=== PATIENT | male | born 1985 | race Caucasian/White ===

== ENCOUNTER 2021-02-15 10:00 | Emergency (ER) | payer SELFPAY ==
[~2021-02-15 10:00] MED LIST: HYDR1TAB PO
[2021-02-15] MEDS ORDERED: LIDOCAINE 1% INJ 20 ML 20 ML VIAL INJ STA (10:23)
--- NOTE | 2021-02-15 10:29 | ED Integumentary General ---
General Chief Complaint: Skin/Wound Problems Stated Complaint: RT KNEE SPIDER BITE Nursing Triage Note: Pt c/o spider bite to R knee. Pt reports first noticing symptoms on . Pt was seen at urgent care on Monday and prescribed Bactrim. Pt reports symptoms have worsened. Area of concern to R knee, erythema to area. Source: patient History of Present Illness Date Seen by Provider: Feb 15, 2021 Time Seen by Provider: 10:02 Initial Comments 36-year-old male presenting with infection swelling to the right knee. He states this has been since last . He did go to urgent care on Monday and was prescribed Bactrim. However today he felt like it was more painful and was feeling that it needed to be drained. He does have a history of MRSA. He had a subjective fever last night and his girlfriend tried to get him to come to the emergency department then but he had already taken his Seroquel for the night and so he stayed in bed. Today he was still having a lot of pain when he tried to go to work at [employer] so he came here to be checked out. Timing/Duration: getting worse (since February 11) Severity: moderate Location: extremities (right knee cap) Possible Cause: other (unsure, thinks it was "spider bite") Modifying Factors: worse with scratching Associated Symptoms: change in skin texture, edema; No fever, No flushing, No headache, No hives, No jaundice, No malaise, No nasal congestion, No numbness, No pallor, No paresthesia, No petechiae, No rash, No sore throat, No swelling/mass/lumps, No tingling Allergies and Home Medications Allergies Coded Allergies: No Known Drug Allergies (Unverified , 01/18/12) Home Medications Hydrocodone/Acetaminophen 1 Each Tablet, 1 TAB PO Q4H PRN for PAIN-SEVERE (8-10) Prescribed by: LEOBARDO BARBOZA on 02/15/21 1134 Patient Home Medication List Home Medication List Reviewed: Yes Review of Systems Review of Systems Constitutional: No chills; fever (subjective) EENTM: no symptoms reported Respiratory: no symptoms reported Cardiovascular: no symptoms reported Gastrointestinal: no symptoms reported Genitourinary: no symptoms reported Musculoskeletal: see HPI, other (pain to right leg/knee around the abscess/cellulitis area) Skin: see HPI, change in color (redness and swelling with occasional purulent drainage to right anterior knee over the knee cap) Psychiatric/Neurological: Denies Numbness, Denies Paresthesia Endocrine: No Symptoms Reported Hematologic/Lymphatic: No Symptoms Reported Past Nmhvcbm-Gawbpk-Tqfjjy Hx Past Med/Social Hx: Reviewed Nursing Past Med/Soc Hx Patient Social History Alcohol Use: Denies Use Smoking Status: Current Everyday Smoker Type Used: Cigarettes 2nd Hand Smoke Exposure: Yes Recent Infectious Disease Expo: No Recent Hopitalizations: No Past Medical History Surgeries: Yes (lymph node removal R armpit) Respiratory: No Cardiac: No Neurological: No Genitourinary: No Gastrointestinal: No Musculoskeletal: No HEENT: No Cancer: No Psychosocial: Yes Bipolar, Depression Physical Exam Vital Signs Vital Signs - First Documented 02/15/21 10:10 Temp 36.7 Pulse 87 Resp 20 B/P (MAP) 126/67 (86) Pulse Ox 97 O2 Delivery Room Air Capillary Refill : Less Than 3 Seconds General Appearance: WD/WN, mild distress Cardiovascular: normal peripheral pulses Extremities: normal range of motion, normal capillary refill, inflammation (tender to anterior right knee where he has erythema and swelling for abscess/cellulitis) 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 Then using 1% plain lidocaine the area was anesthetized. There was removal of 1 mL of 1% plain lidocaine infiltrated into the skin. Then using an 11 blade scalpel an incision was made around the area where he was already having some drainage. There was some purulent drainage and bloody drainage that came out. The area was swabbed to obtain some purulent drainage for culture. Then while applying pressure on attempted to express more of the purulent d rainage. There is a small to moderate amount of purulent drainage and bloody drainage from the abscess. Patient tolerated procedure well without any immediate complication. Sterile dressing applied. We will give a few hydrocodone to help with pain. Counseled on warm packs and continue antibioti cs. Counseled follow-up and return precautions. Progress/Results/Core Measures Results/Orders My Orders Orders - LEOBARDO BARBOZA MD Lidocaine 1% Inj 20 Ml (Xylocaine 1% Inj (02/15/21 10:23) Wound Culture (02/15/21 10:23) Hydrocodone/Apap 5/325 Tablet (Lortab 5 (02/15/21 11:28) Wound Dressing-Ed (02/15/21 11:28) Vital Signs/I&O 02/15/21 02/15/21 10:10 11:40 Temp 36.7 36.7 Pulse 87 87 Resp 20 20 B/P (MAP) 126/67 (86) 126/67 (86) Pulse Ox 97 97 O2 Delivery Room Air Room Air Blood Pressure Mean: 86 Progress Progress Note : Progress Note There is a small to moderate amount of purulent drainage and bloody drainage from the abscess. Patient tolerated procedure well without any immediate complication. Sterile dressing applied. We will give a few hydrocodone to help with pain. Counseled on warm packs and continue antibiotics. Counseled follow- up and return precautions. Departure Impression Primary Impression: Cutaneous abscess of right knee Additional Impression: History of MRSA infection Disposition: HOME, SELF-CARE Condition: Stable Departure-Patient Inst. Decision time for Depature: 11:32 Referrals: LIZ GARCIA MD (PCP/Family) Primary Care Physician Patient Instructions: Abscess Incision and Drainage ED, Methicillin-Resistant Staphylococcus aureus (MRSA) Add. Discharge Instructions: Keep wound clean and use soap and water on it. Keep it covered with clean dressing and may use antibiotic ointment to help keep it from getting further infected. When you are home or able to do so, apply a warm pack such as a wash cloth that you get as hot as you can stand it with water from the sink then apply it to the area for 5-10 minutes. You could do this every hour or two and it will help the area come to a head and drain if there is more pus to drain out. Continue on the Ibuprofen for pain and inflammation. For today you could use the Hydrocodone for severe pain and to help you rest. Check back with clinic or return if you have worsening infection, see red streaks running up your leg, fever over 101 F All discharge instructions reviewed with patient and/or family. Voiced understanding. Scripts Hydrocodone/Acetaminophen (Hydrocodone-Acetamin 5-325 mg) 1 Each Tablet 1 TAB PO Q4H PRN for PAIN-SEVERE (8-10) for 1 Day, #5 TAB 0 Refills Prov: LEOBARDO BARBOZA MD 02/15/21 Work/School Note: Work Release Form Date Seen in the Emergency Department: Feb 15, 2021 Return to Work: Feb 16, 2021 Restrictions: No Restrictions Images Extremities-Lower 1 - Cellulitis (Abscess with surrounding erythema and cellulitis to the right anterior knee), Edema, Swelling, Tenderness LEOBARDO BARBOZA MD Feb 15, 2021 10:29
[2021-02-15] MEDS ORDERED: HYDROcodone/APAP 5 MG/325 MG (LORTAB) TAB PO STA (11:28)
[2021-02-15] MEDS ORDERED: ACHD5005 PO (11:33)
[2021-02-15 11:40] VITALS: BP 126/67
== END 2021-02-15 11:40 | disposition home or self-care (01) ==
LOC: EDUNIT# 10:00 → ER FS 10:02
DX: L02.415 Cutaneous abscess of right lower limb (principal); F17.210 Nicotine dependence, cigarettes, uncomplicated; Z86.14 Personal history of Methicillin resistant Staphylococcus aureus infection
CPT/HCPCS: 87070; 87077; 87186; 87205; 99283

== ENCOUNTER 2021-03-29 13:02 | Emergency (ER) | payer BC, OTHER ==
[~2021-03-29] VITALS: Ht 175.2 cm; Wt 60.5 kg
[~2021-03-29 13:02] MED LIST changes: +ACHD5005 PO
[2021-03-29 13:06] VITALS: BP 133/67
--- NOTE | 2021-03-29 13:30 | ED General ---
General Chief Complaint: Skin/Wound Problems Stated Complaint: INSECT BITE Source of Information: Patient Exam Limitations: No Limitations History of Present Illness Date Seen by Provider: Mar 29, 2021 Time Seen by Provider: 13:00 Initial Comments Patient is a 36 year old male with h/o MRSA who presents with deroofed abscess of the R extensor forearm. Patient states abscess in the region of a possible insect bite. No fever, chills, nausea, vomiting and sweats. Timing/Duration: 1 Hour, 1-3 Hours, 4-5 Days Severity: Mild Associated Systoms: Other Allergies and Home Medications Allergies Coded Allergies: No Known Drug Allergies (Unverified , 01/18/12) Home Medications Hydrocodone/Acetaminophen 1 Each Tablet, 1 TAB PO Q4H PRN for PAIN-SEVERE (8-10) Prescribed by: LEOBARDO BARBOZA on 02/15/21 1134 Patient Home Medication List Home Medication List Reviewed: Yes Review of Systems Review of Systems Constitutional: see HPI EENTM: see HPI Respiratory: see HPI Gastrointestinal: see HPI Genitourinary: see HPI Musculoskeletal: no symptoms reported Skin: see HPI Psychiatric/Neurological: See HPI Hematologic/Lymphatic: See HPI Past Norehwk-Fhzqlt-Vkryub Hx Patient Social History Tobacco Use?: Yes Tobacco type used: Cigarettes Smoking Status: Current Everyday Smoker Substance use?: No Additional substance use comme: reports past hx before being in snf Alcohol Use?: Yes Alcohol Frequency: Couple times a week Pt feels they are or have been: No Past Medical History Surgeries: Yes (lymph node removal R armpit) Respiratory: No Cardiac: No Neurological: No Genitourinary: No Gastrointestinal: No Musculoskeletal: No HEENT: No Cancer: No Psychosocial: Yes Bipolar, Depression Physical Exam Vital Signs Capillary Refill : Height, Weight, BMI Height: '" Weight: lbs. oz. kg; BMI Method:Stated General Appearance: No Apparent Distress, WD/WN, Anxious Extremity: Other ( 1 cm deep deroofed abscess of right extensor forearm mid forearm. No surrounding cellulitis. Minimal clear drainage.) Neurologic/Psychiatric: Alert, Oriented x3 Focused Exam Sepsis Stage: Ruled Out Progress/Results/Core Measures Suspected Sepsis SIRS Temperature: Pulse: Respiratory Rate: Blood Pressure / Mean: Results/Orders Vital Signs/I&O Capillary Refill : Departure Communication (Admissions) Recommend watchful waiting and therapeutic care with PCP follow-up as needed. Return precautions reviewed. Impression Primary Impression: Abscess of right arm Disposition: HOME, SELF-CARE Condition: Stable Departure-Patient Inst. Decision time for Depature: 13:30 Referrals: LIZ GARCIA MD (PCP/Family) Primary Care Physician Patient Instructions: Skin Abscess Add. Discharge Instructions: Please take oral antibiotics and apply topical antibiotics as directed. Follow up with your PCP for re-evaluation. All discharge instructions reviewed with patient and/or family. Voiced understanding. Scripts Mupirocin (Mupirocin) 22 Gm Oint...g. 22 GM TP Q8H, #20 TUBE Prov: CRAIG CALLAHAN DO 03/29/21 Sulfamethoxazole/Trimethoprim (Bactrim Ds Tablet) 1 Each Tablet 1 EACH PO BID, #28 TAB Prov: CRAIG CALLAHAN DO 03/29/21 CRAIG CALLAHAN DO Mar 29, 2021 13:30
[2021-03-29] MEDS ORDERED: SULF1TAB38 PO (13:31)
[2021-03-29] MEDS ORDERED: MUPI22OI2 TP (13:31)
[2021-03-29] MEDS ORDERED: Seroquel (13:41)
== END 2021-03-29 13:34 | disposition home or self-care (01) ==
LOC: EDUNIT# 13:02 → ER FS 13:04
DX: L02.413 Cutaneous abscess of right upper limb (principal); F17.210 Nicotine dependence, cigarettes, uncomplicated
CPT/HCPCS: 99282

== ENCOUNTER 2021-07-26 02:40 | Emergency (ER) | payer SELFPAY ==
[~2021-07-26] VITALS: Ht 170.1 cm; Wt 61.2 kg
[~2021-07-26 02:40] MED LIST changes: +MUPI22OI2 TP; +SULF1TAB38 PO; +Seroquel
[2021-07-26] MEDS ORDERED: IOHEXOL 350 MG/ML 100 ML (OMNIPAQUE 350) VIAL IV ONE (03:00)
[2021-07-26] MEDS ORDERED: NS 100 ML (IVPB) BAG IV ONE (03:00)
[2021-07-26] MEDS ORDERED: ONDANSETRON 4 MG/2 ML (SDV) Z0FRAN IVP ONE (03:00)
[2021-07-26] MEDS ORDERED: morphine INJ 10 MG/ML 1ML (SYR OR VIAL) IVP ONE (03:00)
[2021-07-26] MEDS ORDERED: HOLD METFORMIN - RECEIVED CONTRAST 20 ML VIAL IV SCH (03:00)
--- NOTE | 2021-07-26 03:05 | ED Abdominal Pain ---
General Chief Complaint: Abdominal/GI Problems Stated Complaint: LOWER ABDOMINAL PAIN Nursing Triage Note: Patient states that he started having right lower quadrant abdominal pain approximately 20 minutes [employer]. Patient states this pain woke him up out of sleep and radiates to his testicles. Patients last reported bowel movement was yesterday and was normal. Source of Information: Patient Exam Limitations: No Limitations History of Present Illness Date Seen by Provider: Jul 26, 2021 Time Seen by Provider: 02:46 Initial Comments 36yoM with no significant PMH coming in due to RLQ abd pain that started about 30 minutes prior to arrival. The pain is severe, sharp/crampy, constant, and he has never had this pain before. Nothing seems to make it better. Feels somewhat like he needs to have a bowel movement but had a normal one yesterday. Denies any abdominal surgeries. Denies h/o kidney stones, hematuria, dysuria. Pain does radiate to his testicle. Allergies and Home Medications Allergies Coded Allergies: No Known Drug Allergies (Unverified , 01/18/12) Patient Home Medication List Home Medication List Reviewed: Yes Hydrocodone Bit/Acetaminophen (HYDROcodone/APAP 5 MG/325 MG TAB) 1 Tab Tab, 1 TAB PO Q6H PRN for PAIN-SEVERE (8-10) Prescribed by: NAE BUTLER on 07/26/21 0442 Hydrocodone/Acetaminophen (Hydrocodone-Acetamin 5-325 mg) 1 Each Tablet, 1 TAB PO Q4H PRN for PAIN-SEVERE (8-10) Prescribed by: LEOBARDO BARBOZA on 02/15/21 1134 Ketorolac Tromethamine (Ketorolac Tromethamine) 10 Mg Tablet, 10 MG PO Q8H PRN for PAIN-MODERATE (5-7) Prescribed by: NAE BUTLER on 07/26/21 0442 Mupirocin (Mupirocin) 22 Gm Oint...g., 22 GM TP Q8H Prescribed by: CRAIG CALLAHAN on 03/29/21 1331 Ondansetron (Ondansetron Odt) 4 Mg Tab.rapdis, 4 MG PO Q6H PRN for NAUSEA/VOMITING-1ST LINE Prescribed by: NAE BUTLER on 07/26/21 0442 Sulfamethoxazole/Trimethoprim (Bactrim Ds Tablet) 1 Each Tablet, 1 EACH PO BID Prescribed by: CRAIG CALLAHAN on 03/29/21 1331 Tamsulosin HCl (Flomax) 0.4 Mg Cap, 0.4 MG PO DAILY Prescribed by: NAE BUTLER on 07/26/21 0442 [Seroquel] , (Reported) Entered as Reported by: DARRELL DYE on 03/29/21 1341 Review of Systems Review of Systems Constitutional: No chills, No fever EENTM: No Blurred Vision Respiratory: Denies Cough, Denies Shortness of Air Cardiovascular: Denies Chest Pain Gastrointestinal: Abdominal Pain; Denies Diarrhea, Denies Nausea, Denies Vomiting Genitourinary: No Symptoms Reported Musculoskeletal: no symptoms reported Skin: no symptoms reported Psychiatric/Neurological: No Symptoms Reported Endocrine: No Symptoms Reported Hematologic/Lymphatic: No Symptoms Reported All Other Systems Reviewed Negative Unless Noted: Yes Past Wotlknr-Jdaihq-Hmwamn Hx Patient Social History Tobacco Use?: Yes Tobacco type used: Cigarettes Smoking Status: Current Everyday Smoker Substance use?: No Alcohol Use?: No Past Medical History Surgeries: Yes (lymph node removal R armpit) Respiratory: No Cardiac: No Neurological: No Genitourinary: No Gastrointestinal: No Musculoskeletal: No HEENT: No Cancer: No Psychosocial: Yes Bipolar, Depression Physical Exam Vital Signs Vital Signs - First Documented 07/26/21 02:45 Temp 37.0 Pulse 46 Resp 16 B/P (MAP) 151/92 (111) Pulse Ox 97 O2 Delivery Room Air Capillary Refill : Less Than 3 Seconds Height/Weight/BMI Height: '" Weight: lbs. oz. kg; 21.00 BMI Method:Stated General Appearance: WD/WN, no apparent distress HEENT: PERRL/EOMI, normal ENT inspection, pharynx normal Neck: non-tender, full range of motion, supple, normal inspection Respiratory: chest non-tender, lungs clear, normal breath sounds, no respiratory distress, no accessory muscle use Cardiovascular: regular rate, rhythm, no edema, no murmur Gastrointestinal: normal bowel sounds, soft; No distended, No guarding, No rebound; tenderness Genital/Rectal: normal genital exam, other (normal appearing testicle without s welling or tenderness) Extremities: normal range of motion, non-tender, normal inspection, no pedal edema, no calf tenderness, normal capillary refill Back: normal inspection, no CVA tenderness, no vertebral tenderness Male: no hernia Neurologic/Psychiatric: no motor/sensory deficits, alert, normal mood/affect Skin: normal color, warm/dry Lymphatic: no adenopathy Progress/Results/Core Measures Results/Orders Lab Results Laboratory Tests Test 07/26/21 02:52 07/26/21 03:53 Range/Units White Blood Count 9.9 4.3-11.0 10^3/uL Red Blood Count 5.09 4.30-5.52 10^6/uL Hemoglobin 14.5 13.3-17.7 g/dL Hematocrit 42 40-54 % Mean Corpuscular Volume 83 80-99 fL Mean Corpuscular Hemoglobin 28 25-34 pg Mean Corpuscular Hemoglobin Concent 35 32-36 g/dL Red Cell Distribution Width 12.5 10.0-14.5 % Platelet Count 334 130-400 10^3/uL Mean Platelet Volume 9.0 9.0-12.2 fL Neutrophils (%) (Auto) 57 42-75 % Lymphocytes (%) (Auto) 28 12-44 % Monocytes (%) (Auto) 10 0-12 % Eosinophils (%) (Auto) 5 0-10 % Basophils (%) (Auto) 1 0-10 % Neutrophils # (Auto) 5.6 1.8-7.8 X 10^3 Lymphocytes # (Auto) 2.8 1.0-4.0 X 10^3 Monocytes # (Auto) 1.0 0.0-1.0 X 10^3 Eosinophils # (Auto) 0.5 H 0.0-0.3 10^3/uL Basophils # (Auto) 0.1 0.0-0.1 10^3/uL Sodium Level 137 135-145 MMOL/L Potassium Level 3.5 L 3.6-5.0 MMOL/L Chloride Level 100 98-107 MMOL/L Carbon Dioxide Level 25 21-32 MMOL/L Anion Gap 12 5-14 MMOL/L Blood Urea Nitrogen 21 H 7-18 MG/DL Creatinine 1.25 0.60-1.30 MG/DL Estimat Glomerular Filtration Rate 65 BUN/Creatinine Ratio 17 Glucose Level 116 H 70-105 MG/DL Calcium Level 9.9 8.5-10.1 MG/DL Corrected Calcium 9.6 8.5-10.1 MG/DL Total Bilirubin 0.3 0.1-1.0 MG/DL Aspartate Amino Transf (AST/SGOT) 27 5-34 U/L Alanine Aminotransferase (ALT/SGPT) 23 0-55 U/L Alkaline Phosphatase 99 40-136 U/L Total Protein 7.3 6.4-8.2 GM/DL Albumin 4.4 3.2-4.5 GM/DL Lipase 64 8-78 U/L Urine Color YELLOW Urine Clarity CLEAR Urine pH 8.0 5-9 Urine Specific Pierz 1.010 L 1.016-1.022 Urine Protein NEGATIVE NEGATIVE Urine Glucose (UA) NEGATIVE NEGATIVE Urine Ketones NEGATIVE NEGATIVE Urine Nitrite NEGATIVE NEGATIVE Urine Bilirubin NEGATIVE NEGATIVE Urine Urobilinogen 0.2 < = 1.0 MG/DL Urine Leukocyte Esterase NEGATIVE NEGATIVE Urine RBC (Auto) NEGATIVE NEGATIVE Urine RBC NONE /HPF Urine WBC NONE /HPF Urine Squamous Epithelial Cells NONE /HPF Urine Crystals NONE /LPF Urine Bacteria NEGATIVE /HPF Urine Casts NONE /LPF Urine Mucus NEGATIVE /LPF Urine Culture Indicated NO My Orders Orders - NAE BUTLER MD Morphine Injection (Morphine Injection (07/26/21 03:00) Ct Abd/Pelv W (Appendicitis) (07/26/21 02:55) Ondansetron Injection (Zofran Injectio (07/26/21 03:00) Ed Iv/Invasive Line Start (07/26/21 02:55) Comprehensive Metabolic Panel (07/26/21 02:55) Lipase (07/26/21 02:55) Ua Culture If Indicated (07/26/21 02:55) Cbc With Automated Diff (07/26/21 02:55) Iohexol Injection (Omnipaque 350 Mg/Ml 1 (07/26/21 03:00) Received Contrast (Hold Metformin- Contr (07/26/21 03:00) Ns (Ivpb) (Sodium Chloride 0.9% Ivpb Bag (07/26/21 03:00) Ketorolac Injection (Toradol Injection) (07/26/21 03:45) Medications Given in ED Current Medications Medications Dose Ordered Sig/Noel Route Start Time Stop Time Status Last Admin Dose Admin Iohexol 100 ml ONCE ONCE IV 07/26/21 03:00 07/26/21 03:01 DC 07/26/21 03:11 100 ML Ketorolac Tromethamine 15 mg ONCE ONCE IVP 07/26/21 03:45 07/26/21 03:46 DC 07/26/21 03:55 15 MG Morphine Sulfate 4 mg ONCE ONCE IVP 07/26/21 03:00 07/26/21 03:01 DC 07/26/21 03:03 4 MG Ondansetron HCl 4 mg ONCE ONCE IVP 07/26/21 03:00 07/26/21 03:01 DC 07/26/21 03:01 4 MG Sodium Chloride 100 ml ONCE ONCE IV 07/26/21 03:00 07/26/21 03:01 DC 07/26/21 03:11 100 ML Vital Signs/I&O 07/26/21 07/26/21 02:45 04:44 Temp 37.0 Pulse 46 64 Resp 16 16 B/P (MAP) 151/92 (111) 126/84 Pulse Ox 97 99 O2 Delivery Room Air Room Air Blood Pressure Mean: 111 Progress Progress Note : Progress Note 36yoM with above history coming in due to RLQ pain radiating to his groin. ABCs intact and VSS on presentation. Exam most notable for RLQ pain and normal testicle exam. An IV was placed and he was given morphine for pain control and zofran for nausea. Basic labs including LFTs and urine ordered. WBC normal, creatinine normal, LFTs and lipase normal. UA negative for infection. On reassessment after the morphine his pain was essentially all gone. CT imaging significant for right-sided ureterolithiasis with a small stone. I believe the patient is comfortable enough for a trial of passage at home. He was sent home with strict return precautions and stable condition. Diagnostic Imaging Diagonstic Imaging: CT Plain Films/CT/US/NM/MRI: abdomen, pelvis Comments [facility]. [place], [place] NAME: DOMENICO KUHN [facility] REC#: [id number] PT STATUS: REG ER : 1985 PHYSICIAN: NAE BUTLER MD ADMIT DATE: 07/26/21/ER FS Signed Date of Exam:07/26/21 CT ABD/PELV W (APPENDICITIS) PROCEDURE: CT abdomen and pelvis with contrast, rule out appendicitis. TECHNIQUE: Multiple contiguous axial images were obtained through the abdomen and pelvis after the administration of intravenous contrast. All CT scans use one or more of the following dose optimizing techniques: automated exposure control, MA and/or KvP adjustment based on patient size and exam type or iterative reconstruction. INDICATION: Right lower quadrant abdominal pain. COMPARISON: 01/18/2012. FINDINGS: The lung bases are clear. The liver, gallbladder, pancreas, spleen, adrenals, kidneys, left ureter, bladder and appendix are negative. There is mild right ureteral pyelocaliectasis. 0.2 cm renal stone in the distal right ureter. There is a single 0.2 cm nonobstructing calyceal tip renal stone in the right kidney. No free intraperitoneal air or fluid. No lymphadenopathy. No evidence of bowel obstruction. No acute osseous findings. IMPRESSION: 1. 0.2 cm renal stone in the distal right ureter resulting in mild right hydronephrosis. There is a 2nd nonobstructing calyceal tip renal stone measuring 0.2 cm the right kidney. 2. CT abdomen and pelvis otherwise unremarkable. Specifically, normal appendix. Dictated by: Dictated on workstation # [id number] Dict: 07/26/21420 Trans: 07/26/21425 [facility] [id number] Interpreted by: JESU ROWLAND MD Electronically signed by: JESU ROWLAND MD 07/26/21425 Departure Impression Primary Impression: Ureterolithiasis Disposition: 01 HOME, SELF-CARE Condition: Improved Departure-Patient Inst. Decision time for Depature: 04:39 Referrals: LIZ GARCIA MD (PCP/Family) Primary Care Physician LESLEY BRADEN MD Patient Instructions: Kidney Stone, Adult ED Add. Discharge Instructions: You were seen in the emergency department for abdominal pain, flank pain, and all of this goes into your scrotum somewhat. You have a kidney stone that is passing currently, and fortunately it is fairly small and has a good chance of passing on its own. Be sure to urinate in a strainer to see if you can catch i t. Take Toradol every 8 hours for pain and if have pain on top of that you can take the hydrocodone. When you run out of the Toradol you can begin taking ibuprofen 600 mg every 6 hours if you continue to have pain. Do not mix ibuprofen, aspirin, naproxen, or anything similar with the Toradol however because they are similar medications. I given the number for Dr. Gonzalez the urol ogist in [place], and if he continued to have issues within the next couple days please call to have an appointment scheduled. Scripts Ondansetron (Ondansetron Odt) 4 Mg Tab.rapdis 4 MG PO Q6H PRN for NAUSEA/VOMITING-1ST LINE for 5 Days, #20 TAB Prov: NAE BUTLER MD 07/26/21 Tamsulosin HCl (Flomax) 0.4 Mg Cap 0.4 MG PO DAILY for 14 Days, #14 CAP Prov: NAE BUTLER MD 07/26/21 Hydrocodone Bit/Acetaminophen (HYDROcodone/APAP 5 MG/325 MG TAB) 1 Tab Tab 1 TAB PO Q6H PRN for PAIN-SEVERE (8-10) for 3 Days, #12 TAB 0 Refills Prov: NAE BUTLER MD 07/26/21 Ketorolac Tromethamine (Ketorolac Tromethamine) 10 Mg Tablet 10 MG PO Q8H PRN for PAIN-MODERATE (5-7) for 3 Days, #9 TAB Prov: NAE BUTLER MD 07/26/21 NAE BUTLER MD Jul 26, 2021 03:05
[2021-07-26 03:08] LABS: HEMATOCRIT 42 % (40-54); HEMOGLOBIN 14.5 g/dL (13.3-17.7); MEAN CORPUSCULAR HEMOGLOBIN 28 pg (25-34); MEAN CORPUSCULAR HGB CONC 35 g/dL (32-36); MEAN CORPUSCULAR VOLUME 83 fL (80-99); WHITE BLOOD COUNT 9.9 10^3/uL (4.3-11.0)
[2021-07-26 03:09] LABS: BASOPHILS # (AUTO) 0.1 10^3/uL (0.0-0.1); BASOPHILS % (AUTO) 1 % (0-10); EOSINOPHILS # (AUTO) 0.5 10^3/uL (0.0-0.3); EOSINOPHILS % (AUTO) 5 % (0-10); LYMPHOCYTES # (AUTO) 2.8 X 10^3 (1.0-4.0); LYMPHOCYTES % (AUTO) 28 % (12-44); MONOCYTES % (AUTO) 10 % (0-12); NEUTROPHILS # (AUTO) 5.6 X 10^3 (1.8-7.8); NEUTROPHILS % (AUTO) 57 % (42-75); PLATELET COUNT 334 10^3/uL (130-400)
[2021-07-26 03:28] LABS: ALBUMIN 4.4 GM/DL (3.2-4.5); BILIRUBIN,TOTAL 0.3 MG/DL (0.1-1.0); CALCIUM 9.9 MG/DL (8.5-10.1); CREATININE SERUM 1.25 MG/DL (0.60-1.30); POTASSIUM 3.5 MMOL/L (3.6-5.0); TOTAL PROTEIN 7.3 GM/DL (6.4-8.2)
[2021-07-26] MEDS ORDERED: KETOROLAC 30 MG/ML VIAL IVP ONE (03:45)
[2021-07-26 04:01] LABS: BACTERIA,URINE NEGATIVE /HPF; BILIRUBIN,URINE NEGATIVE (NEGATIVE); CLARITY,URINE CLEAR; COLOR,URINE YELLOW; GLUCOSE, URINE (UA) NEGATIVE (NEGATIVE); KETONES,URINE NEGATIVE (NEGATIVE); LEUKOCYTE ESTERASE ,URINE NEGATIVE (NEGATIVE); NITRITE,URINE NEGATIVE (NEGATIVE); PROTEIN,URINE NEGATIVE (NEGATIVE)
--- NOTE | 2021-07-26 04:29 | Diagnostic Imaging Report ---
PROCEDURE: CT abdomen and pelvis with contrast, rule out appendicitis. TECHNIQUE: Multiple contiguous axial images were obtained through the abdomen and pelvis after the administration of intravenous contrast. All CT scans use one or more of the following dose optimizing techniques: automated exposure control, MA and/or KvP adjustment based on patient size and exam type or iterative reconstruction. INDICATION: Right lower quadrant abdominal pain. COMPARISON: 01/18/2012. FINDINGS: The lung bases are clear. The liver, gallbladder, pancreas, spleen, adrenals, kidneys, left ureter, bladder and appendix are negative. There is mild right ureteral pyelocaliectasis. 0.2 cm renal stone in the distal right ureter. There is a single 0.2 cm nonobstructing calyceal tip renal stone in the right kidney. No free intraperitoneal air or fluid. No lymphadenopathy. No evidence of bowel obstruction. No acute osseous findings. IMPRESSION: 1. 0.2 cm renal stone in the distal right ureter resulting in mild right hydronephrosis. There is a 2nd nonobstructing calyceal tip renal stone measuring 0.2 cm the right kidney. 2. CT abdomen and pelvis otherwise unremarkable. Specifically, normal appendix. Dictated by: Dictated on workstation # [id number]
[2021-07-26] MEDS ORDERED: KETO10TA PO (04:42)
[2021-07-26] MEDS ORDERED: TMSL.4C PO (04:42)
[2021-07-26] MEDS ORDERED: ACHD5005 PO (04:42)
[2021-07-26] MEDS ORDERED: ONDA4TAB11 PO (04:42)
[2021-07-26 04:44] VITALS: BP 126/84
== END 2021-07-26 04:45 | disposition home or self-care (01) ==
LOC: EDUNIT# 02:40 → ER FS 02:43
DX: N13.2 Hydronephrosis with renal and ureteral calculous obstruction (principal); F17.210 Nicotine dependence, cigarettes, uncomplicated; F31.9 Bipolar disorder, unspecified; Z79.899 Other long term (current) drug therapy
CPT/HCPCS: 36415; 74177; 80053; 81000; 83690; 85025

== ENCOUNTER 2021-10-09 11:53 | Emergency (ER) | payer SELFPAY ==
[~2021-10-09] VITALS: Ht 170.1 cm; Wt 61.2 kg
[~2021-10-09 11:53] MED LIST changes: +KETO10TA PO; +ONDA4TAB11 PO; +TMSL.4C PO
[2021-10-09 12:03] VITALS: BP 129/73
--- NOTE | 2021-10-09 12:26 | ED Lower Extremity ---
General Chief Complaint: Lower Extremity Stated Complaint: PAIN LEFT LEG Source: patient Exam Limitations: no limitations History of Present Illness Date Seen by Provider: Oct 09, 2021 Time Seen by Provider: 11:55 Initial Comments 36yoM with no significant PMH coming in due to left lower extremity pain. 3 days ago he was working in his attic on his knees, slipped down off of the [place] and landed on his left knee. Had mild pain but was not severe. The next mo rning when he woke up he had more severe left knee pain and left foot pain. It is a throbbing type pain which is constant and nothing seems to make better or worse. Tried ibuprofen with the last dose around 6 AM this morning which did take the edge off. Denies any fever, significant swelling, or any other concerns. Does have a rash on his body which popped up about a month ago which she thought was psoriasis based off his research. He also notes that multiple joints in his fingers and wrists have been bothering him. Allergies and Home Medications Allergies Coded Allergies: No Known Drug Allergies (Unverified , 01/18/12) Patient Home Medication List Home Medication List Reviewed: Yes Hydrocodone Bit/Acetaminophen (HYDROcodone/APAP 5 MG/325 MG TAB) 1 Tab Tab, 1 TAB PO Q6H PRN for PAIN-SEVERE (8-10) Prescribed by: NAE BUTLER on 07/26/21441 Hydrocodone/Acetaminophen (Hydrocodone-Acetamin 5-325 mg) 1 Each Tablet, 1 TAB PO Q4H PRN for PAIN-SEVERE (8-10) Prescribed by: LEOBARDO BARBOZA on 02/15/21 1134 Ketorolac Tromethamine (Ketorolac Tromethamine) 10 Mg Tablet, 10 MG PO Q8H PRN for PAIN-MODERATE (5-7) Prescribed by: NAE BUTLER on 07/26/21 044 Mupirocin (Mupirocin) 22 Gm Oint...g., 22 GM TP Q8H Prescribed by: CRAIG CALLAHAN on 03/29/21 1331 Ondansetron (Ondansetron Odt) 4 Mg Tab.rapdis, 4 MG PO Q6H PRN for NAUSEA/VOMITING-1ST LINE Prescribed by: NAE BUTLER on 07/26/21 0442 Sulfamethoxazole/Trimethoprim (Bactrim Ds Tablet) 1 Each Tablet, 1 EACH PO BID Prescribed by: CRAIG CALLAHAN on 03/29/21 1331 Tamsulosin HCl (Flomax) 0.4 Mg Cap, 0.4 MG PO DAILY Prescribed by: NAE BUTLER on 07/26/21 0442 [Seroquel] , (Reported) Entered as Reported by: DARRELL DYE on 03/29/21 1341 Review of Systems Constitutional: No chills, No fever EENTM: No blurred vision Respiratory: No cough, No short of breath Cardiovascular: No chest pain Gastrointestinal: No abdominal pain, No diarrhea, No nausea, No vomiting Genitourinary: no symptoms reported Musculoskeletal: joint pain Skin: rash Psychiatric/Neurological: No Symptoms Reported All Other Systems Reviewed Negative Unless Noted: Yes Past Wevsahb-Dlmgul-Hzxmcd Hx Patient Social History Tobacco Use?: Yes Past Medical History Surgeries: Yes (lymph node removal R armpit) Respiratory: No Cardiac: No Neurological: No Genitourinary: No Gastrointestinal: No Musculoskeletal: No HEENT: No Cancer: No Psychosocial: Yes Bipolar, Depression Physical Exam Vital Signs Vital Signs - First Documented 10/09/21 12:03 Temp 36.7 Pulse 103 Resp 18 B/P (MAP) 129/73 (91) O2 Delivery Room Air Capillary Refill : Height, Weight, BMI Height: '" Weight: lbs. oz. kg; 21.00 BMI Method:Stated General Appearance: WD/WN, no apparent distress HEENT: PERRL/EOMI, normal ENT inspection, pharynx normal Neck: non-tender, full range of motion, supple, normal inspection Cardiovascular: regular rate, rhythm, no edema, no murmur Respiratory: chest non-tender, lungs clear, normal breath sounds, no respiratory distress, no accessory muscle use Gastrointestinal: normal bowel sounds, non tender, soft; No distended, No guarding, No rebound Hips: bilateral hip non-tender, bilateral hip normal inspection, bilateral hip normal range of motion, bilateral hip no evidence of injury Legs: bilateral leg non-tender, bilateral leg normal inspection, bilateral leg normal range of motion, bilateral leg no evidence of injury Knees: right knee non-tender; bilateral knee normal inspection, bilateral knee normal range of motion, bilateral knee no evidence of injury; left knee bone tenderness (tender along the left lateral knee joint and above the patella), left knee other (trace effusion on the left) Ankles: bilateral ankle non-tender, bilateral ankle normal inspection, bilateral ankle normal range of motion, bilateral ankle no evidence of injury Feet: right foot non-tender; bilateral foot normal inspection, bilateral foot normal range of motion, bilateral foot no evidence of injury; left foot other (pain to light touch along top/lateral foot) Neurologic/Tendon: normal sensation, normal motor functions Neurologic/Psychiatric: no motor/sensory deficits, alert, normal mood/affect Skin: normal color, warm/dry, other (Well-demarcated erythematous plaques that are red patches with white scales on top along his extremities as well as abdomen) Lymphatic: no adenopathy Progress/Results/Core Measures Results/Orders Lab Results Laboratory Tests Test 10/09/21 12:28 Range/Units White Blood Count 13.6 H 4.3-11.0 10^3/uL Red Blood Count 4.44 4.30-5.52 10^6/uL Hemoglobin 12.5 L 13.3-17.7 g/dL Hematocrit 36 L 40-54 % Mean Corpuscular Volume 82 80-99 fL Mean Corpuscular Hemoglobin 28 25-34 pg Mean Corpuscular Hemoglobin Concent 35 32-36 g/dL Red Cell Distribution Width 12.4 10.0-14.5 % Platelet Count 274 130-400 10^3/uL Mean Platelet Volume 9.1 9.0-12.2 fL Immature Granulocyte % (Auto) 0 % Neutrophils (%) (Auto) 81 H 42-75 % Lymphocytes (%) (Auto) 9 L 12-44 % Monocytes (%) (Auto) 7 0-12 % Eosinophils (%) (Auto) 2 0-10 % Basophils (%) (Auto) 0 0-10 % Neutrophils # (Auto) 11.0 H 1.8-7.8 X 10^3 Lymphocytes # (Auto) 1.3 1.0-4.0 X 10^3 Monocytes # (Auto) 0.9 0.0-1.0 X 10^3 Eosinophils # (Auto) 0.3 0.0-0.3 10^3/uL Basophils # (Auto) 0.0 0.0-0.1 10^3/uL Immature Granulocyte # (Auto) 0.1 0.0-0.1 10^3/uL Erythrocyte Sedimentation Rate 57 H 0-15 MM/HR C-Reactive Protein 16.61 H <0.50 MG/DL My Orders Orders - NAE BUTLER MD Foot 3 View Left (10/09/21 12:17) Knee 3 View Left (10/09/21 12:17) Cbc With Automated Diff (10/09/21 12:20) Erythrocyte Sedimentation Rate (10/09/21 12:20) Crp Fs (10/09/21 12:20) Ketorolac Injection (Toradol Injection) (10/09/21 12:30) Medications Given in ED Current Medications Medications Dose Ordered Sig/Noel Route Start Time Stop Time Status Last Admin Dose Admin Ketorolac Tromethamine 15 mg ONCE ONCE IVP 10/09/21 12:30 10/09/21 12:31 DC 10/09/21 12:31 15 MG Vital Signs/I&O 10/09/21 12:03 Temp 36.7 Pulse 103 Resp 18 B/P (MAP) 129/73 (91) O2 Delivery Room Air Progress Progress Note : Progress Note 36-year-old male with above history coming in due to multiple joints hurting specifically left knee, left foot specifically all of his toes on that foot. ABCs were intact and vitals were stable on presentation. He is afebrile and has full range of motion of all of his joints. Septic arthritis unlikely given the normal range of motion without significant pain with range of motion. X-ray of his left knee and left foot ordered and interpreted by me showing no fracture or dislocation. He has significant psoriatic changes to his skin with some areas I am concerned for developing cellulitis on top of psoriasis as well. We will do a course of antibiotics for this. Inflammatory markers are elevated and my biggest concern would be for psoriatic arthritis or some other autoimmune arthropathy. I will refer him back to [facility] to be seen and hopefully get a referral to a foil spinner as I believe he needs to be on disease modifying medications if this is the case. I recommended against steroids given his psoriasis and how this could make it flareup when he is done with the steroids. I believe he is stable for discharge with outpatient follow-up. He was sent home with strict return precautions. Departure Impression Primary Impression: Psoriasis Additional Impression: Joint pain Qualified Codes: M25.50 - Pain in unspecified joint Disposition: 01 HOME, SELF-CARE Condition: Stable Departure-Patient Inst. Decision time for Depature: 13:28 Referrals: LIZ GARCIA MD (PCP/Family) Primary Care Physician Patient Instructions: Psoriatic Arthritis in Adults Add. Discharge Instructions: I am concerned you have an autoimmune disease that is affecting her joints. The one that I believe you could have is called psoriatic arthritis. I want you to follow-up with Dr. Garcia and hopefully get a referral to a foil spinner. You should not develop any fever greater than 100.4 F, your joint should not become significantly larger or have redness spreading up you skin (different than your current rash), otherwise had want you to be seen sooner. Scripts Ketorolac Tromethamine (Ketorolac Tromethamine) 10 Mg Tablet 10 MG PO Q8H PRN for PAIN-MODERATE (5-7) for 5 Days, #15 TAB Prov: NAE BUTLER MD 10/09/21 Clindamycin HCl (Clindamycin HCl) 300 Mg Capsule 300 MG PO QID for 7 Days, #28 CAP Prov: NAE BUTLER MD 10/09/21 Work/School Note: Work Release Form Date Seen in the Emergency Department: Oct 09, 2021 Return to Work: Oct 11, 2021 Restrictions: No Restrictions NAE BUTLER MD Oct 09, 2021 12:26
[2021-10-09] MEDS ORDERED: KETOROLAC 30 MG/ML VIAL IVP ONE (12:30)
[2021-10-09 12:32] LABS: HEMATOCRIT 36 % (40-54); HEMOGLOBIN 12.5 g/dL (13.3-17.7); MEAN CORPUSCULAR HEMOGLOBIN 28 pg (25-34); MEAN CORPUSCULAR HGB CONC 35 g/dL (32-36); MEAN CORPUSCULAR VOLUME 82 fL (80-99); PLATELET COUNT 274 10^3/uL (130-400); WHITE BLOOD COUNT 13.6 10^3/uL (4.3-11.0)
[2021-10-09 12:33] LABS: BASOPHILS % (AUTO) 0 % (0-10); EOSINOPHILS # (AUTO) 0.3 10^3/uL (0.0-0.3); EOSINOPHILS % (AUTO) 2 % (0-10); LYMPHOCYTES # (AUTO) 1.3 X 10^3 (1.0-4.0); LYMPHOCYTES % (AUTO) 9 % (12-44); MEAN PLATELET VOLUME 9.1 fL (9.0-12.2); MONOCYTES # (AUTO) 0.9 X 10^3 (0.0-1.0); MONOCYTES % (AUTO) 7 % (0-12); NEUTROPHILS % (AUTO) 81 % (42-75)
[2021-10-09 12:58] LABS: ERYTHROCYTE SEDIMENTATION RATE 57 MM/HR (0-15)
[2021-10-09] MEDS ORDERED: KETO10TA PO (13:30)
[2021-10-09] MEDS ORDERED: CLIN-144 PO (13:30)
--- NOTE | 2021-10-11 14:20 | Diagnostic Imaging Report ---
INDICATION: Pain, fall. COMPARISON: 01/18/2012. TECHNIQUE: Three radiographs of the left knee dated 10/09/2021. FINDINGS: No acute fracture or dislocation. No destructive osseous process. Joint spaces are well maintained. No significant osteophytosis. Tiny knee joint effusion. No suspicious radiopaque foreign body. IMPRESSION: No acute osseous abnormality with tiny knee joint effusion present. Dictated by: Dictated on workstation # [id number]
--- NOTE | 2021-10-11 14:21 | Diagnostic Imaging Report ---
INDICATION: Fall with left foot pain. FINDINGS: Three views. There are no fractures or dislocations. The articulating surfaces are smooth. Joint spaces are well maintained. IMPRESSION: Normal left foot. Dictated by: Dictated on workstation # [id number]
== END 2021-10-09 13:40 | disposition home or self-care (01) ==
LOC: EDUNIT# 11:53 → ER FS 11:56
DX: L40.9 Psoriasis, unspecified (principal); M25.562 Pain in left knee; F31.9 Bipolar disorder, unspecified; Z79.899 Other long term (current) drug therapy
CPT/HCPCS: 36415; 73562; 73630; 85025; 85652; 86141

== ENCOUNTER 2021-10-19 18:10 | Emergency (ER) | payer SELFPAY ==
[~2021-10-19 18:10] MED LIST changes: +CLIN-144 PO
--- NOTE | 2021-10-19 18:26 | ED General ---
General Chief Complaint: General Problems/Pain Stated Complaint: RT SIDE,KNEE,SHOULDER History of Present Illness Date Seen by Provider: Oct 19, 2021 Time Seen by Provider: 18:26 Initial Comments 36-year-old male presents with right ankle pain. Patient was seen here on 10/09/2021 and diagnosed with potential psoriatic arthritis. Patient was asked to follow-up with her primary care provider when she did. Patient was given a steroid shot and started on oral steroids. Patient reports that he stopped the steroids 2 days ago. Patient presents today because he has a swollen right ankle that is painful. It is warm to the touch. Patient reports that this started getting worse 2 days ago and is progressively worsened over that time. He denies any fevers or chills. He describes the pain as a burning pain and is very tender to touch. Allergies and Home Medications Allergies Coded Allergies: No Known Drug Allergies (Unverified , 01/18/12) Patient Home Medication List Home Medication List Reviewed: Yes Clindamycin HCl (Clindamycin HCl) 300 Mg Capsule, 300 MG PO QID Prescribed by: NAE BUTLER on 10/09/21 1330 Hydrocodone Bit/Acetaminophen (HYDROcodone/APAP 5 MG/325 MG TAB) 1 Tab Tab, 1 TAB PO Q6H PRN for PAIN-SEVERE (8-10) Prescribed by: NAE BUTLER on 07/26/21 0442 Hydrocodone/Acetaminophen (Hydrocodone-Acetamin 5-325 mg) 1 Each Tablet, 1 TAB PO Q4H PRN for PAIN-SEVERE (8-10) Prescribed by: LEOBARDO BARBOZA on 02/15/21 1134 Ketorolac Tromethamine (Ketorolac Tromethamine) 10 Mg Tablet, 10 MG PO Q8H PRN for PAIN-MODERATE (5-7) Prescribed by: NAE BUTLER on 07/26/21 0442 Ketorolac Tromethamine (Ketorolac Tromethamine) 10 Mg Tablet, 10 MG PO Q8H PRN for PAIN-MODERATE (5-7) Prescribed by: NAE BUTLER on 10/09/21 1330 Mupirocin (Mupirocin) 22 Gm Oint...g., 22 GM TP Q8H Prescribed by: CRAIG CALLAHAN on 03/29/21 1331 Ondansetron (Ondansetron Odt) 4 Mg Tab.rapdis, 4 MG PO Q6H PRN for NAUSEA/VOMITING-1ST LINE Prescribed by: NAE BUTLER on 07/26/21 044 Sulfamethoxazole/Trimethoprim (Bactrim Ds Tablet) 1 Each Tablet, 1 EACH PO BID Prescribed by: CRAIG CALLAHAN on 03/29/21 1331 Tamsulosin HCl (Flomax) 0.4 Mg Cap, 0.4 MG PO DAILY Prescribed by: NAE BUTLER on 07/26/21 044 [Seroquel] , (Reported) Entered as Reported by: DARRELL DYE on 03/29/21 1341 Review of Systems Review of Systems Constitutional: No chills, No fever EENTM: no symptoms reported Respiratory: no symptoms reported Cardiovascular: no symptoms reported Gastrointestinal: no symptoms reported Musculoskeletal: see HPI Skin: see HPI Psychiatric/Neurological: No Symptoms Reported Hematologic/Lymphatic: No Symptoms Reported Immunological/Allergic: no symptoms reported Past Xdrvncf-Ahjprh-Gqtjjc Hx Immunizations Up To Date First/Initial COVID19 Vaccinat: Not currently Past Medical History Surgery/Hospitalization HX: Bipolar; Denies surgical history. Surgeries: Yes (lymph node removal R armpit) Respiratory: No Cardiac: No Neurological: No Genitourinary: No Gastrointestinal: No Musculoskeletal: No HEENT: No Cancer: No Psychosocial: Yes Bipolar, Depression Physical Exam Vital Signs Vital Signs - First Documented 10/19/21 18:15 Temp 38.0 Pulse 104 Resp 18 B/P (MAP) 133/87 (102) Pulse Ox 100 O2 Delivery Room Air Capillary Refill : Height, Weight, BMI Height: '" Weight: lbs. oz. kg; 21.00 BMI Method:Stated General Appearance: Moderate Distress HEENT: PERRL/EOMI Neck: Non Tender Respiratory: Lungs Clear, Normal Breath Sounds Cardiovascular: Regular Rate, Rhythm, No Edema Gastrointestinal: Non Tender, Soft Extremity: Swelling (Right ankle, very tender to touch) Neurologic/Psychiatric: Alert, Oriented x3 Skin: Other (Right ankle warm with some mild warmth to the lower leg very min imal erythema) Progress/Results/Core Measures Suspected Sepsis SIRS Temperature: Pulse: Respiratory Rate: Laboratory Tests 10/19/21 19:02: White Blood Count 21.4H Blood Pressure / Mean: Laboratory Tests 10/19/21 19:02: Creatinine 0.89, Platelet Count 566H, Total Bilirubin 0.3 Results/Orders Lab Results Laboratory Tests Test 10/19/21 19:02 Range/Units White Blood Count 21.4 H 4.3-11.0 10^3/uL Red Blood Count 4.89 4.30-5.52 10^6/uL Hemoglobin 13.7 13.3-17.7 g/dL Hematocrit 41 40-54 % Mean Corpuscular Volume 83 80-99 fL Mean Corpuscular Hemoglobin 28 25-34 pg Mean Corpuscular Hemoglobin Concent 34 32-36 g/dL Red Cell Distribution Width 12.8 10.0-14.5 % Platelet Count 566 H 130-400 10^3/uL Mean Platelet Volume 8.6 L 9.0-12.2 fL Immature Granulocyte % (Auto) 1 % Neutrophils (%) (Auto) 81 H 42-75 % Lymphocytes (%) (Auto) 10 L 12-44 % Monocytes (%) (Auto) 7 0-12 % Eosinophils (%) (Auto) 1 0-10 % Basophils (%) (Auto) 0 0-10 % Neutrophils # (Auto) 17.3 H 1.8-7.8 10^3/uL Lymphocytes # (Auto) 2.0 1.0-4.0 10^3/uL Monocytes # (Auto) 1.5 H 0.0-1.0 10^3/uL Eosinophils # (Auto) 0.3 0.0-0.3 10^3/uL Basophils # (Auto) 0.1 0.0-0.1 10^3/uL Immature Granulocyte # (Auto) 0.2 H 0.0-0.1 10^3/uL Neutrophils % (Manual) 89 % Lymphocytes % (Manual) 4 % Monocytes % (Manual) 4 % Basophils % (Manual) 1 % Metamyelocytes % 1 % Reactive Lymphocytes 1 % Platelet Estimate INCREASED Blood Morphology Comment NORMAL Erythrocyte Sedimentation Rate 69 H 0-15 MM/HR Sodium Level 135 135-145 MMOL/L Potassium Level 4.1 3.6-5.0 MMOL/L Chloride Level 96 L 98-107 MMOL/L Carbon Dioxide Level 27 21-32 MMOL/L Anion Gap 12 5-14 MMOL/L Blood Urea Nitrogen 22 H 7-18 MG/DL Creatinine 0.89 0.60-1.30 MG/DL Estimat Glomerular Filtration Rate 114 BUN/Creatinine Ratio 25 Glucose Level 98 70-105 MG/DL Calcium Level 9.5 8.5-10.1 MG/DL Corrected Calcium 9.8 8.5-10.1 MG/DL Total Bilirubin 0.3 0.1-1.0 MG/DL Aspartate Amino Transf (AST/SGOT) 21 5-34 U/L Alanine Aminotransferase (ALT/SGPT) 46 0-55 U/L Alkaline Phosphatase 112 40-136 U/L C-Reactive Protein 15.26 H <0.50 MG/DL Total Protein 7.9 6.4-8.2 GM/DL Albumin 3.6 3.2-4.5 GM/DL My Orders Orders - DAVID KNOX DO Cbc With Automated Diff (10/19/21 18:35) Comprehensive Metabolic Panel (10/19/21 18:35) Procalcitonin (Pct) (10/19/21 18:35) Erythrocyte Sedimentation Rate (10/19/21 18:35) Crp Fs (10/19/21 18:35) Uric Acid (10/19/21 18:35) Ed Iv/Invasive Line Start (10/19/21 18:35) Ketorolac Injection (Toradol Injection) (10/19/21 18:35) Ankle 3 View Right (10/19/21 18:35) Manual Differential (10/19/21 19:02) Fentanyl Inj (Sublimaze Injection) (10/19/21 19:20) Ceftriaxone 1 Gm Pre-Mix (Rocephin 1 Gm (10/19/21 19:20) Hydrocodone/Apap 5/325 Tablet (Lortab 5 (10/19/21 20:45) Vital Signs/I&O 10/19/21 18:15 Temp 38.0 Pulse 104 Resp 18 B/P (MAP) 133/87 (102) Pulse Ox 100 O2 Delivery Room Air Capillary Refill : Progress Note : Progress Note Patient has had an increase in his white count and platelets likely related to the steroid use. He does have worsening of his ESR and CRP from his previous visit 10 days ago. Patient symptoms acutely worsened following the cessation of his steroid treatment. Discussed with him at this time steroids or not the best treatment for potential psoriatic arthritis due to potential of side effects and worsening of his condition. Patient very unlikely to have cellulitis but most likely reactive arthritis and I do agree with Dr. Ibarra as potential psoriatic arthritis. I will prescribe him a high-dose NSAID for twice daily. I asked him to call Dr. Lanie quintero the morning to try to expedite his rheumatology consult and further outpatient management. I will provide him a 1 dose of hydrocodone to try to help get him a little more comfortable through the evening in addition to the medication he was already given here in the ER. Patient agrees and is comfortable with the plan. He is discharged home in stable condition Departure Impression Primary Impression: Arthritis Additional Impression: Psoriasis Disposition: HOME, SELF-CARE Condition: Improved Departure-Patient Inst. Referrals: LIZ GARCIA MD (PCP/Family) Primary Care Physician Patient Instructions: Psoriatic Arthritis, Reactive Arthritis Add. Discharge Instructions: Please call your primary care provider in the morning for further outpatient man agement and medication All discharge instructions reviewed with patient and/or family. Voiced understanding. Scripts Celecoxib (Celecoxib) 200 Mg Capsule 200 MG PO BID, #20 CAP Prov: DAVID KNOX DO 10/19/21 DAVID KNOX DO Oct 19, 2021 18:26
[2021-10-19] MEDS ORDERED: KETOROLAC 30 MG/ML VIAL IVP STA (18:35)
--- NOTE | 2021-10-19 18:53 | Diagnostic Imaging Report ---
INDICATION: Right ankle pain AP, oblique, and lateral views of the right ankle are obtained. No fracture or acute bony abnormality is seen. There is soft tissue swelling. Joint spaces are unremarkable. IMPRESSION: Soft tissue swelling of the right ankle with no acute fracture or dislocation. Dictated by: Dictated on workstation # [id number]
[2021-10-19 19:14] LABS: BASOPHILS # (AUTO) 0.1 10^3/uL (0.0-0.1); BASOPHILS % (AUTO) 0 % (0-10); EOSINOPHILS # (AUTO) 0.3 10^3/uL (0.0-0.3); EOSINOPHILS % (AUTO) 1 % (0-10); HEMATOCRIT 41 % (40-54); HEMOGLOBIN 13.7 g/dL (13.3-17.7); LYMPHOCYTES % (AUTO) 10 % (12-44); MEAN CORPUSCULAR HEMOGLOBIN 28 pg (25-34); MEAN CORPUSCULAR HGB CONC 34 g/dL (32-36); MEAN CORPUSCULAR VOLUME 83 fL (80-99); MEAN PLATELET VOLUME 8.6 fL (9.0-12.2); MONOCYTES # (AUTO) 1.5 10^3/uL (0.0-1.0); MONOCYTES % (AUTO) 7 % (0-12); NEUTROPHILS # (AUTO) 17.3 10^3/uL (1.8-7.8); NEUTROPHILS % (AUTO) 81 % (42-75); PLATELET COUNT 566 10^3/uL (130-400); WHITE BLOOD COUNT 21.4 10^3/uL (4.3-11.0)
[2021-10-19] MEDS ORDERED: cefTRIAXone 1 GM PRE-MIX 50 ML IV STA (19:20)
[2021-10-19] MEDS ORDERED: fentaNYL INJ 100 MCG/2 ML AMP IVP STA (19:20)
[2021-10-19 19:52] LABS: LYMPHOCYTES % (MANUAL) 4 %; MONOCYTES % (MANUAL) 4 %; NEUTROPHILS % (MANUAL) 89 %
[2021-10-19 19:53] LABS: BASOPHILS % (MANUAL) 1 %; METAMYELOCYTES % 1 %; PLATELET ESTIMATE INCREASED; RBC MORPH NORMAL; REACTIVE LYMPHOCYTES 1 %
[2021-10-19 20:00] LABS: ERYTHROCYTE SEDIMENTATION RATE 69 MM/HR (0-15)
[2021-10-19 20:02] LABS: CALCIUM 9.5 MG/DL (8.5-10.1); CREATININE SERUM 0.89 MG/DL (0.60-1.30); POTASSIUM 4.1 MMOL/L (3.6-5.0)
[2021-10-19 20:03] LABS: ALBUMIN 3.6 GM/DL (3.2-4.5); BILIRUBIN,TOTAL 0.3 MG/DL (0.1-1.0); TOTAL PROTEIN 7.9 GM/DL (6.4-8.2)
[2021-10-19] MEDS ORDERED: CELE-63 PO (20:38)
[2021-10-19] MEDS ORDERED: HYDROcodone/APAP 5 MG/325 MG (LORTAB) TAB PO ONE (20:45)
[2021-10-19 20:53] VITALS: BP 129/78
[2021-10-20 15:52] LABS: URIC ACID 3.3 MG/DL (2.6-7.2)
== END 2021-10-19 20:53 | disposition home or self-care (01) ==
LOC: EDUNIT# 18:10 → ER FS 18:12
DX: M19.071 Primary osteoarthritis, right ankle and foot (principal); L40.9 Psoriasis, unspecified; D72.829 Elevated white blood cell count, unspecified; D69.1 Qualitative platelet defects
CPT/HCPCS: 36415; 73610; 80053; 84145; 84550; 85007; 85027; 85652; 86141

== ENCOUNTER 2022-09-08 00:12 | Emergency (ER) | payer SELFPAY ==
[~2022-09-08] VITALS: Ht 170.1 cm; Wt 61.5 kg
[~2022-09-08 00:12] MED LIST changes: +CELE-63 PO
[2022-09-08 00:15] VITALS: BP 137/78
[2022-09-08] MEDS ORDERED: LIDOCAINE 1% INJ 20 ML VIAL ONE (00:22)
[2022-09-08] MEDS ORDERED: LIDOCAINE 1% INJ 20 ML VIAL INJ ONE (00:30)
[2022-09-08] MEDS ORDERED: CEPHALEXIN 250 MG (KEFLEX) CAP PO SCH (00:45)
[2022-09-08] MEDS ORDERED: HYDROcodone/APAP 5 MG/325 MG (LORTAB) TAB PO ONE (00:45)
[2022-09-08] MEDS ORDERED: CEPH500T PO (00:49)
[2022-09-08] MEDS ORDERED: ACHD5005 PO (00:49)
--- NOTE | 2022-09-08 00:49 | ED Upper Extremity ---
General Chief Complaint: Laceration Stated Complaint: RIGHT HAND LACERATION Nursing Triage Note: Patient states that a pocket knife closed on his right middle finger and lacerated the end of it. Patient had pressure applied to the area. Source: patient Exam Limitations: no limitations History of Present Illness Date Seen by Provider: Sep 08, 2022 Time Seen by Provider: 12:20 Initial Comments Patient is a 37-year-old right-handed male who presents with laceration to his right middle finger pad through the distal tip of the nail while closing his knife. Injury occurred just prior to ED arrival. Patient's tetanus is up-to-date. Onset: just prior to arrival Severity: moderate Pain/Injury Location: right 3rd finger Method of Injury: incised Modifying Factors: Improves With Other Allergies and Home Medications Allergies Coded Allergies: No Known Drug Allergies (Unverified , 01/18/12) Patient Home Medication List Home Medication List Reviewed: Yes Celecoxib (Celecoxib) 200 Mg Capsule, 200 MG PO BID Prescribed by: DAVID KNOX on 10/19/212037 Clindamycin HCl (Clindamycin HCl) 300 Mg Capsule, 300 MG PO QID Prescribed by: NAE BUTLER on 10/09/21 1330 Hydrocodone Bit/Acetaminophen (HYDROcodone/APAP 5 MG/325 MG TAB) 1 Tab Tab, 1 TAB PO Q6H PRN for PAIN-SEVERE (8-10) Prescribed by: NAE BUTLER on 07/26/21 0442 Hydrocodone/Acetaminophen (Hydrocodone-Acetamin 5-325 mg) 1 Each Tablet, 1 TAB PO Q4H PRN for PAIN-SEVERE (8-10) Prescribed by: LEOBARDO BARBOZA on 02/15/21 1134 Ketorolac Tromethamine (Ketorolac Tromethamine) 10 Mg Tablet, 10 MG PO Q8H PRN for PAIN-MODERATE (5-7) Prescribed by: NAE BUTLER on 07/26/21 0442 Ketorolac Tromethamine (Ketorolac Tromethamine) 10 Mg Tablet, 10 MG PO Q8H PRN for PAIN-MODERATE (5-7) Prescribed by: NAE BUTLER on 10/09/21 1330 Mupirocin (Mupirocin) 22 Gm Oint...g., 22 GM TP Q8H Prescribed by: CRAIG CALLAHAN on 03/29/21 1331 Ondansetron (Ondansetron Odt) 4 Mg Tab.rapdis, 4 MG PO Q6H PRN for NAUSEA/VOMITING-1ST LINE Prescribed by: NAE BUTLER on 07/26/21 0442 Sulfamethoxazole/Trimethoprim (Bactrim Ds Tablet) 1 Each Tablet, 1 EACH PO BID Prescribed by: CRAIG CALLAHAN on 03/29/21 1331 Tamsulosin HCl (Flomax) 0.4 Mg Cap, 0.4 MG PO DAILY Prescribed by: NAE BUTLER on 07/26/21 044 [Seroquel] , (Reported) Entered as Reported by: DARRELL DYE on 03/29/21 1341 Review of Systems Constitutional: see HPI Skin: see HPI Past Zfucadm-Jooxzx-Krytoe Hx Patient Social History Tobacco Use?: Yes Tobacco type used: Cigarettes Smoking Status: Current Everyday Smoker Substance use?: No Alcohol Use?: No Pt feels they are or have been: No Immunizations Up To Date First/Initial COVID19 Vaccinat: Not currently Second COVID19 Vaccination Cristian: Not currently Third COVID19 Vaccination Date: Not currently Past Medical History Surgery/Hospitalization HX: Bipolar; Denies surgical history; Psoriasis Surgeries: Yes (lymph node removal R armpit) Respiratory: No Cardiac: No Neurological: No Genitourinary: No Gastrointestinal: No Musculoskeletal: No HEENT: No Cancer: No Psychosocial: Yes Bipolar, Depression Physical Exam Vital Signs Vital Signs - First Documented 09/08/22 00:15 Temp 36.8 Pulse 92 Resp 16 B/P (MAP) 137/78 (97) Pulse Ox 95 O2 Delivery Room Air Capillary Refill : Less Than 3 Seconds Height, Weight, BMI Height: '" Weight: lbs. oz. kg; 21.00 BMI Method:Stated General Appearance: WD/WN, no apparent distress Hand: Right, laceration (2.5 cm curvilinear full-thickness laceration through the medial aspect of the right middle finger pad including medial edge nailbed. Wound is clean, bleeding is controlled.) Procedures/Interventions Wound Location: Upper Extremities (Right middle finger) Wound Length (cm): 2.5 Wound Explored: clean Betadine Prep?: Yes Anesthesia: 1% Lidocaine (3 mm) Suture: Ethlion Suture Size: 5-0 Other Closure Supply: Wound Adhesive Number of Sutures: 1 Layer Closure?: 1 Number Deep Layer Sutures: 8 (Running interlocked sutures) Sterile Dressing Applied?: Yes Progress Wound cleansed and closed with sutures over distal fingertip and wound adhesive used over nailbed. Progress/Results/Core Measures Results/Orders My Orders Orders - CRAIG CALLAHAN DO Lidocaine 1% Inj 20 Ml (Xylocaine 1% Inj (09/08/22 00:22) Lidocaine 1% Inj 20 Ml (Xylocaine 1% Inj (09/08/22 00:30) Hydrocodone/Apap 5/325 Tablet (Lortab 5 (09/08/22 00:45) Cephalexin Capsule (Keflex Capsule) (09/08/22 00:45) Medications Given in ED Current Medications Medications Dose Ordered Sig/Noel Route Start Time Stop Time Status Last Admin Dose Admin Lidocaine HCl 20 ml ONCE ONCE INJ 09/08/22 00:30 09/08/22 00:31 DC 09/08/22 00:27 20 ML Vital Signs/I&O 09/08/22 00:15 Temp 36.8 Pulse 92 Resp 16 B/P (MAP) 137/78 (97) Pulse Ox 95 O2 Delivery Room Air Blood Pressure Mean: 97 Departure Communication (Admissions) Right middle finger laceration with pocket knife. Wound cleansed closed and suture and wound adhesive with good wound edge approximation and control of bleeding. Tetanus is up-to-date. First dose of antibiotics given. Typical wound care instructions reviewed reviewed in detail. Return precautions reviewed. Patient verbalizes understanding and agreement with discharge instructions prior to departure. Impression Primary Impression: Laceration of right middle finger Disposition: HOME, SELF-CARE Condition: Stable Departure-Patient Inst. Decision time for Depature: 00:48 Referrals: LIZ GARCIA MD (PCP/Family) Primary Care Physician Patient Instructions: Laceration Repair With Stitches ED Add. Discharge Instructions: You were evaluated in the emergency department for laceration of your right middle finger. The wound was closed with sutures and wound adhesive. Please keep wound clean dry and protected. Take ibuprofen for pain and hydrocodone as needed for additional relief. Complete 3-day course of antibiotics and return to the ED in 7 to 10 days for suture removal. Return sooner if signs of infection. All discharge instructions reviewed with patient and/or family. Voiced understanding. Scripts Cephalexin (Cephalexin) 500 Mg Tablet 500 MG PO TID, #9 TAB Prov: CRAIG CALLAHAN DO 09/08/22 Hydrocodone/Acetaminophen (Hydrocodone-Acetamin 5-325 mg) 5 Mg-325 Mg Tablet 1 TAB PO Q4H PRN for PAIN-MODERATE (5-7), #10 TAB Prov: CRAIG CALLAHAN DO 09/08/22 CRAIG CALLAHAN DO Sep 08, 2022 00:49
== END 2022-09-08 00:51 | disposition home or self-care (01) ==
LOC: EDUNIT# 00:12 → ER FS 00:16
DX: S61.312A Laceration without foreign body of right middle finger with damage to nail, initial encounter (principal); F17.210 Nicotine dependence, cigarettes, uncomplicated; Z28.310 Unvaccinated for COVID-19; W26.0XXA Contact with knife, initial encounter
CPT/HCPCS: 12001